=== PATIENT | female | born 2005 | race Caucasian/White ===

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

== ENCOUNTER → 2024-05-17 | Outpatient (CLI) | payer OTHER, BC ==
[~2024-05-17] MED LIST: CEPHALEXIN500 M1 PO; FLEXERIL 1010 MG/TAB PO; NAPROSYN500 MG PO; PYRIDIUM 100MG100 MG PO
== END ==
LOC: COL.RAD 09:59
DX: M54.6 Pain in thoracic spine (principal)